=== PATIENT | male | born 1995 | race African-American/Black ===

== ENCOUNTER 2017-09-09 03:39 | Emergency (ER) | payer MEDICAID ==
[~2017-09-09] VITALS: Ht 177.8 cm; Wt 90.7 kg
[2017-09-09 03:57] VITALS: BP 140/79
[2017-09-09] MEDS ORDERED: DEXAMETHASONE SOD PHOSPHATE 10 MG/ML VIAL ONE (04:19)
[2017-09-09] MEDS ORDERED: DEXAMETHASONE SOD PHOSPHATE 4 MG/ML VIAL IM ONE (04:30)
== END 2017-09-09 04:25 | disposition home or self-care (01) ==
LOC: ER 03:39
DX: R05 Cough (principal); J45.909 Unspecified asthma, uncomplicated; G47.00 Insomnia, unspecified; Z88.8 Allergy status to other drugs, medicaments and biological substances
CPT/HCPCS: 96372; 99283; A4606; J1100; Z7610

== ENCOUNTER 2019-02-11 11:24 | Emergency (ER) | payer MEDICAID ==
[~2019-02-11] VITALS: Ht 177.8 cm; Wt 86.2 kg
[2019-02-11 11:35] VITALS: BP 122/77
== END 2019-02-11 12:36 | disposition home or self-care (01) ==
LOC: ER 11:24
DX: J45.909 Unspecified asthma, uncomplicated (principal); R09.89 Other specified symptoms and signs involving the circulatory and respiratory systems
CPT/HCPCS: 71045-TC